=== PATIENT | female | born 2000 | race Hispanic/Latino ===

== ENCOUNTER 2022-01-11 01:11 | Emergency (ER) | payer MEDICAID ==
[2022-01-11 06:45] LABS: HCG Qualitative,Urine Negative (Negative)
[2022-01-11 06:46] LABS: Mucus,Urine FEW /HPF; RBC,Urine < 1.0 /HPF (0.0-6.0)
[2022-01-11 06:52] LABS: Color,Urine Yellow (Yellow)
[2022-01-11 06:53] LABS: Bilirubin,Urine Negative (Negative); Blood,Urine Trace (Negative); Protein,Urine <15 mg/dL mg/dL (Negative); Urobilinogen,Urine < 2.0 mg/dL (<2.0)
--- NOTE | 2022-01-11 08:49 | Emergency Department Report ---
ED Abdominal Pain HPI - General Chief Complaint: Abdominal Pain Stated Complaint: ABDOMINAL PAIN/BLEEDING/CANT EAT Time Seen by Provider: 01/11/22 08:25 Source: patient Mode of arrival: Ambulatory Limitations: No Limitations - History of Present Illness Initial Comments: 21-year-old white female with no past medical history presents to the emergency department for evaluation of epigastric abdominal pain. She states for the last 1-1/2 weeks she has pain and after eating and also nausea when she attempts to eat meat. She states that as result of the pain and nausea she has had a decreased appetite. She denies fever, dysuria, vaginal discharge. She also states that she. Last night she started to have some spotting. MD Complaint: abdominal pain (Epigastric area) -: week(s) (1.5) Location: epigastric Radiation: none Migration to: no migration Severity scale (0 -10): 6 Quality: aching Consistency: intermittent Worsens With: eating Associated Symptoms: nausea. denies: vomiting, diarrhea, fever, chills, dysuria, hematemesis, hematochezia, hematuria, syncope - Related Data LMP Date: 12/30/21 Previous Rx's Medication Instructions Recorded Last Taken Type Famotidine [Pepcid] 20 mg PO BID #28 tablet 01/11/22 Unknown Rx Ondansetron [Zofran Odt] 4 mg PO Q8HR PRN #12 tab.rapdis 01/11/22 Unknown Rx Allergies Allergy/AdvReac Type Severity Reaction Status Date / Time No Known Allergies Allergy Unverified 01/11/22 01:19 ED Review of Systems ROS: Stated complaint: ABDOMINAL PAIN/BLEEDING/CANT EAT Other details as noted in HPI Comment: All other systems reviewed and negative Constitutional: denies: chills, fever Respiratory: denies: cough, shortness of breath Cardiovascular: denies: chest pain, palpitations, dyspnea on exertion, edema, syncope Gastrointestinal: abdominal pain, nausea. denies: vomiting, diarrhea, hematemesis, melena, hematochezia Genitourinary: abnormal menses. denies: urgency, dysuria, frequency, hematuria, discharge Neurological: denies: headache, weakness ED Past Medical Hx - Medications Home Medications: Home Medications Medication Instructions Recorded Confirmed Last Taken Type Famotidine [Pepcid] 20 mg PO BID #28 tablet 01/11/22 Unknown Rx Ondansetron [Zofran Odt] 4 mg PO Q8HR PRN #12 tab.rapdis 01/11/22 Unknown Rx ED Physical Exam - General Limitations: No Limitations General appearance: alert, in no apparent distress - Head Head exam: Present: atraumatic, normocephalic - Eye Eye exam: Present: normal appearance. Absent: conjunctival injection - Neck Neck exam: Present: normal inspection, full ROM. Absent: tenderness, lymphadenopathy - Respiratory Respiratory exam: Present: normal lung sounds bilaterally. Absent: respiratory distress, wheezes, rales, rhonchi, stridor, chest wall tenderness - Cardiovascular Cardiovascular Exam: Present: regular rate, normal heart sounds - GI/Abdominal GI/Abdominal exam: Present: soft, normal bowel sounds. Absent: distended, tenderness, guarding, rebound, rigid - Extremities Exam Extremities exam: Present: normal inspection, full ROM - Back Exam Back exam: Present: normal inspection, tenderness. Absent: CVA tenderness (R), CVA tenderness (L) - Neurological Exam Neurological exam: Present: alert, oriented X3, CN II-XII intact, reflexes normal. Absent: motor sensory deficit - Psychiatric Psychiatric exam: Present: normal affect, normal mood - Skin Skin exam: Present: warm, dry, intact, normal color ED Course Vital Signs 01/11/22 09:22 Temperature 97.8 F Pulse Rate 64 Respiratory 17 Rate O2 Sat by Pulse 100 Oximetry ED Medical Decision Making - Medical Decision Making 21-year-old white female with no past medical history presents to the emergency department for evaluation of epigastric abdominal pain. She states for the last 1-1/2 weeks she has pain and after eating and also nausea when she attempts to eat meat. She states that as result of the pain and nausea she has had a decreased appetite. She denies fever, dysuria, vaginal discharge. She also states that she. Last night she started to have some spotting. Urine negative for UTI and . No acute abnormalities noted on exam, and there was no tenderness to palpation. Low suspicion for acute abdomen. Given description of symptoms, patient will be advised to take 2-week course of Pepcid for epigastric pain and given prescription for Zofran to use as needed. She will be advised to follow-up with [facility] for abnormal uterine bleeding. Plan of care reviewed with patient and she verbalized understanding of and agreement with. Critical care attestation.: If time is entered above; I have spent that time in minutes in the direct care of this critically ill patient, excluding procedure time. ED Disposition Clinical Impression: Epigastric abdominal pain, Abnormal uterine bleeding Disposition: HOME / SELF CARE / HOMELESS Is pt being admited?: No Does the pt Need Aspirin: No Condition: Stable Instructions: Heartburn, [id number], Abdominal Pain, Adult, [id number], Abnormal Uterine Bleeding, [id number], Abdominal Pain (ED) Additional Instructions: Take medications as prescribed. Follow-up with [facility] for further evaluation and management. Return to the emergency department for any concerning symptoms. Prescriptions: Famotidine [Pepcid] 20 mg PO BID #28 tablet Ondansetron [Zofran Odt] 4 mg PO Q8HR PRN #12 tab.rapdis PRN Reason: Nausea Referrals: ELDER HARTMAN MD [Primary Care Provider] - 3-5 Days MANFRED LOGAN MD [Staff Physician] - 3-5 Days Time of Disposition: 08:54
== END 2022-01-11 09:22 | disposition home or self-care (01) ==
LOC: ED 01:11
DX: R10.13 Epigastric pain (principal); N93.9 Abnormal uterine and vaginal bleeding, unspecified
CPT/HCPCS: 81001; 81025; 99283